=== PATIENT | male | born 1995 | race Caucasian/White ===

== ENCOUNTER 2024-08-27 10:05 | Emergency (ER) | payer BC ==
[~2024-08-27] VITALS: Ht 177.8 cm; Wt 99.8 kg
[2024-08-27 10:05] VITALS: BP 172/87; PULSE 103; RESP 18; TEMP 97.7; O2SAT 99
[2024-08-27] MEDS ORDERED: BOOSTRIX IM ONE (11:31)
[2024-08-27] MEDS: BOOSTRIX IM ONE (11:33)
[2024-08-27] MEDS ORDERED: TRIPLE ANTIBIOTIC OINTMENT PKT TP ONE (11:34)
[2024-08-27 11:36] VITALS: BP 175/72; PULSE 98; RESP 18; TEMP 97.7; O2SAT 99
== END 2024-08-27 11:39 | disposition home or self-care (01) ==
LOC: ER 10:05
DX: S61.211A Laceration without foreign body of left index finger without damage to nail, initial encounter (principal); I10 Essential (primary) hypertension; X58.XXXA Exposure to other specified factors, initial encounter; Y93.89 Activity, other specified; Y92.89 Other specified places as the place of occurrence of the external cause; Y99.8 Other external cause status
CPT/HCPCS: 99284; 90471; 12002; 90715; A4649